=== PATIENT | female | born 1985 | race Caucasian/White ===

== ENCOUNTER 2016-09-11 01:08 | Emergency (ER) | payer MEDICAID ==
--- NOTE | 2016-09-11 01:29 | Emergency Department Record ---
History of Present Illness - General Chief Complaint: Abdominal Pain Stated Complaint: ABDOMINAL PAIN Time Seen by Provider: 09/11/16 01:25 Source: Patient Mode of Arrival: Ambulatory - History of Present Illness Initial Comments: The patient states that she began having low grade upper abdominal pain on her right side last week. She saw her PA who ordered an ultrasound which was done on 09-07-16. Tonight about an hour prior to arrival she developed sudden sever RUQ abdominal pain in the same location only much more severe, about 7-8 out of 10 severity. She has never had blood work or an abdominal CT. She is scheduled to follow up this week for the remainder of the workup. MD Complaint: Abdominal pain Onset/Timin -: Hour(s) Location: RUQ Radiation: Epigastric Quality: Other Consistency: Constant Improves With: Nothing Worsens With: Eating Associated Symptoms: Nausea - Related Data Previous Rx's Medication Instructions Recorded Phenobarb/Hyoscy/Atropine/Scop 32.4 mg PO QID #200 elixir 09/11/16 [ Elixir] Allergies Allergy/AdvReac Type Severity Reaction Status Date / Time cyclobenzaprine AdvReac Intermediate FATIGUE Verified 09/11/16 01:18 Travel Screening - Travel/Exposure Within Last 30 Days Have you traveled within the last 30 days?: No - Travel Symptoms Symptom Screening: None Review of Systems Reviewed: No additional complaints except as noted below Constitutional: Reports: As per HPI. Denies: Chills, Fever, Malaise, Night sweats, Weakness, Weight change Eyes: Reports: As per HPI. Denies: Eye discharge, Eye pain, Photophobia, Vision change ENT: Reports: As per HPI. Denies: Congestion, Dental pain, Ear pain, Epistaxis , Hearing loss, Throat pain Respiratory: Reports: As per HPI. Denies: Cough, Dyspnea, Hemoptysis, Stridor, Wheezes Cardiovascular: Reports: As per HPI. Denies: Arrhythmia, Chest pain, Dyspnea on exertion, Edema, Murmurs, Orthopnea, Palpitations, Paroxysmal nocturnal dyspnea, Rheumatic Fever, Syncope Endocrine: Reports: As per HPI. Denies: Fatigue, Heat or cold intolerance, Polydipsia, Polyuria Gastrointestinal: Reports: As per HPI. Denies: Abdominal pain, Constipation, Diarrhea, Hematemesis, Hematochezia, Melena, Nausea, Vomiting Genitourinary: Reports: As per HPI. Denies: Abnormal menses, Discharge, Dyspareunia, Dysuria, Frequency, Hematuria, Incontinence, Retention, Urgency Musculoskeletal: Reports: As per HPI. Denies: Arthralgia, Back pain, Gout, Joint swelling, Myalgia, Neck pain Skin: Reports: As per HPI. Denies: Bruising, Change in color, Change in hair/ nails, Lesions, Pruritus, Rash Neurological: Reports: As per HPI. Denies: Abnormal gait, Confusion, Headache, Numbness, Paresthesias, Seizure, Tingling, Tremors, Vertigo, Weakness Psychiatric: Reports: As per HPI. Denies: Anxiety, Auditory hallucinations, Depression, Homicidal thoughts, Suicidal thoughts, Visual hallucinations Hematological/Lymphatic: Reports: As per HPI. Denies: Anemia, Blood Clots, Easy bleeding, Easy bruising, Swollen glands Past Medical History - SOCIAL HISTORY Smoking Status: Current every day smoker - RESPIRATORY Hx Respiratory Disorders: No - CARDIOVASCULAR Hx Cardio Disorders: Yes Comment:: high cholesterol - NEURO Hx Neuro Disorders: No - GI Hx GI Disorders: No - Hx Genitourinary Disorders: No Comment:: difficult painful periods with heavy bleeding. - ENDOCRINE Hx Endocrine Disorders: No - MUSCULOSKELETAL Hx Musculoskeletal Disorders: Yes Comment:: knee pain - PSYCH Hx Psych Problems: Yes Hx Anxiety: Yes Hx Depression: Yes - HEMATOLOGY/ONCOLOGY Hx Hematology/Oncology Disorders: No Family Medical History Any Significant Family History?: Yes Hx Cancer: Grandparents Physical Exam - General General Appearance: Alert, Oriented x3, Cooperative, Moderate distress - Head Head exam: Normal inspection - Eye Eye exam: Normal appearance, PERRL Pupils: Normal accommodation - ENT ENT exam: Normal exam, Mucous membranes moist, Normal external ear exam, Normal orophraynx, TM's normal bilaterally Ear exam: Normal external inspection. negative: External canal tenderness Nasal Exam: Normal inspection. negative: Discharge, Sinus tenderness Mouth exam: Normal external inspection, Tongue normal Teeth exam: Normal inspection. negative: Dental caries Throat exam: Normal inspection. negative: Tonsillar erythema, Tonsillar exudate - Neck Neck exam: Normal inspection, Full ROM. negative: Tenderness - Respiratory Respiratory exam: Normal lung sounds bilaterally. negative: Respiratory distress - Cardiovascular Cardiovascular Exam: Regular rate, Normal rhythm, Normal heart sounds - GI/Abdominal GI/Abdominal exam: Soft, Normal bowel sounds, Tenderness (RUQ abdomen tender on palpation). negative: Distended, Rebound, Rigid - Rectal Rectal exam: Deferred - exam: Deferred - Extremities Extremities exam: Normal inspection, Full ROM, Normal capillary refill. negative: Tenderness - Back Back exam: Reports: Normal inspection, Full ROM. Denies: Muscle spasm, Rash noted, Tenderness - Neurological Neurological exam: Alert, Normal gait, Oriented X3, Reflexes normal - Psychiatric Psychiatric exam: Normal affect, Normal mood - Skin Skin exam: Dry, Intact, Normal color, Warm Course Vital Signs 09/11/16 01:18 Temperature 98.8 F Pulse Rate [ 100 H Pulse Ox Probe] Respiratory 20 Rate Blood Pressure 125/83 [Left Arm] Pulse Ox 98 - Reevaluation(s) Reevaluation #1: The patient is up to the bathroom to get us a urine and has not yet improved with her pain level. 09/11/16 02:20 Reevaluation #2: Patient is not improved after dilaudid, CT ordered and repeat dilaudid ordered. 09/11/16 02:48 Reevaluation #3: Patient is more comfortable after second dose of dilaudid. Will go for CT at 4: 30. 09/11/16 03:31 Reevaluation #4: Reviewed patient's [place] Abdomen report from 09-07-16 which reads: 1. No gallstones or biliary dilatation see. The table worker does indicated a positive sonographic hardy's sign however. 2.The remainder of the abdomen ultrasound appears negative. No hydronephrosis evident. 09/11/16 03:35 Reevaluation #5: Patient understands she is to have a fat free diet and that she is constipated mildly as well. She agrees to plan to return if her pain is not controlled with clear liquids, donnatol, and two norcos for home. She will talk with Grazyna Tuesday to be rechecked. She is much more comfortable. 09/11/16 05:17 09/11/16 05:19 Medical Decision Making - Management Options MDM Management: Additional Work-up Planned (e.g. ADM/Transfer/OP Study) (Out patient hida scan through your PCP.) - Data Complexity MDM Data: Labs Ordered and/or Reviewed, X-Ray Ordered and/or Reviewed (Abd/ Pelvis Contrast CT: Normal CT without acute process seen. Mild constipation. Per [facility].) - Lab Data Result diagrams: 09/11/16 01:35 09/11/16 01:35 Disposition Disposition: Discharge Clinical Impression: RUQ abdominal pain, Biliary colic symptom Disposition: Home, Self-Care Condition: (1) Good Instructions: Abdominal Pain (ED), Biliary Colic (ED) Additional Instructions: Clear liquids. Donnatol as directed as needed for pain. Call PCP Grazyna Robles Tuesday for recheck and further workup to schedule HIDA scan through PCP office. Take norco as directed IF NEEDED for pain. High fiber fat free diet and increase fluids for constipation. Prescriptions: Phenobarb/Hyoscy/Atropine/Scop [ Elixir] 32.4 mg PO QID #200 elixir Forms: Patient Portal Access
[2016-09-11] MEDS ORDERED: 0.9 % SODIUM CHLORIDE 1000ML 1,000 ML IV ONE (01:38)
[2016-09-11] MEDS ORDERED: ONDANSETRON HCL IV 4 MG/2 ML VIAL IVP ONE (01:38)
[2016-09-11] MEDS ORDERED: HYDROMORPHONE HCL 1 MG/ML CPJ IVP ONE ×2 (01:42→02:46)
[2016-09-11] MEDS ORDERED: 0.9 % SODIUM CHLORIDE 1,000 ML BAG IV ONE (01:42)
[2016-09-11 01:51] LABS: BASO % 0.2 % (0-6); EOS % 2.2 % (0-6); GRAN % 55.2 % (47-80); HEMATOCRIT 40.7 % (35.0-47.0); HEMOGLOBIN 13.7 gm/dl (11.6-16.0); LYMPH % 36.5 % (16-45); MEAN CELL VOLUME 88.5 fl (81-97); MEAN CORPUSCULAR HEMOGLOBIN 29.8 pg (27-33); MEAN CORPUSCULAR HGB CONC 33.7 g/dl (32-36); MONO % 5.9 % (0-9); PLATELET COUNT 190 K/uL (130-400); RED CELL DISTRIBUTION WIDTH 13.2 % (11.5-14.5); WHITE BLOOD COUNT W/O DIFF 9.3 K/uL (4.2-12.2)
[2016-09-11 02:02] LABS: ALKALINE PHOSPHATASE 72 U/L (38-126); ALT/SGPT 51 U/L (9-52); AST/SGOT 35 U/L (14-36); BILIRUBIN,TOTAL 0.15 mg/dL (0.2-1.3); BLOOD UREA NITROGEN 12 mg/dL (7-17); CREATININE 0.7 mg/dL (0.52-1.04); EST GLOMERULAR FILTRATION RATE > 60 ml/min; GLUCOSE,RANDOM 97 mg/dL (70-110); LIPASE 60 U/L (23-300); TOTAL PROTEIN 6.8 gm/dL (6.3-8.2)
[2016-09-11 02:39] LABS: URINE APPEARANCE CLEAR; URINE BILIRUBIN NEGATIVE (NEGATIVE); URINE BLOOD MODERATE (NEGATIVE); URINE COLOR YELLOW; URINE GLUCOSE (UA) NEGATIVE (NEGATIVE); URINE KETONE NEGATIVE (NEGATIVE); URINE LEUKOCYTE ESTERASE TRACE (NEGATIVE); URINE NITRITE NEGATIVE (NEGATIVE); URINE PROTEIN NEGATIVE (NEGATIVE); URINE UROBILINOGEN 0.2 E.U./dL (0.20 - 1.00)
[2016-09-11 02:43] LABS: HCG,QUALITATIVE URINE NEGATIVE (NEGATIVE)
[2016-09-11] MEDS ORDERED: PROMETHAZINE HCL 25 MG/ML VIAL IVP ONE (02:47)
[2016-09-11 02:54] LABS: URINE BACTERIA 2+; URINE RBC 36 - 50 (NONE SEEN); URINE WBC 21 - 35 (0-2/hpf)
[2016-09-11] MEDS ORDERED: HYDROCODONE/APAP 5/325MG TABLET PO ONE (05:13)
== END 2016-09-11 05:29 | disposition home or self-care (01) ==
LOC: ER 01:08
DX: K80.50 Calculus of bile duct without cholangitis or cholecystitis without obstruction (principal); R10.11 Right upper quadrant pain; R11.0 Nausea; R82.99 Other abnormal findings in urine
CPT/HCPCS: 99284 ×2; 96376; 96374; 96375; 83690; 85025; 80076; 80048; 81001; 81025; 74177; Q9967; J2405; J1170; J2550; J7030

== ENCOUNTER 2016-11-01 10:08 | Day surgery (SDC) | payer MEDICAID ==
[~2016-11-01 10:08] MED LIST: ACETAMINOPHEN 1000MG/100 ML PREMIX IV ONE; FAMOTIDINE 20MG TABLET PO ONE; MECLIZINE 25 MG TABLET PO ONE; METOCLOPRAMIDE 10 MG TABLET PO ONE
[2016-11-01 10:24] LABS: HEMATOCRIT 40.2 % (35.0-47.0); HEMOGLOBIN 13.1 gm/dl (11.6-16.0)
[2016-11-01] MEDS ORDERED: NEOSTIGMINE 1 MG/1 ML,10ML VIAL IV ONE (14:00)
[2016-11-01] MEDS ORDERED: KETOROLAC 30 MG/ML VIAL IVP ONE (14:00)
[2016-11-01] MEDS ORDERED: LIDOCAINE 2% MDV (20MG/ML) 20ML VIAL IV ONE (14:00)
[2016-11-01] MEDS ORDERED: PROPOFOL 10 MG/ML VIAL IV ONE (14:00)
[2016-11-01] MEDS ORDERED: SUCCINYLCHOLINE 20 MG/ML 10ML IVP ONE (14:00)
[2016-11-01] MEDS ORDERED: FENTANYL PF 100MCG/2ML VIAL IV ONE (14:00)
[2016-11-01] MEDS ORDERED: GLYCOPYRROLATE 0.2 MG/ML ML IV ONE (14:00)
[2016-11-01] MEDS ORDERED: ROCURONIUM BROMIDE 50MG/5ML VIAL IV ONE (14:00)
[2016-11-01] MEDS ORDERED: SEVOFLURANE 250 ML INH ONE (14:00)
[2016-11-01] MEDS ORDERED: HYDROMORPHONE HCL 2 MG/ML VIAL IV ONE (15:54)
[2016-11-01] MEDS ORDERED: HYDROCODONE/APAP 5/325MG TABLET PO ONE (15:54)
--- NOTE | 2016-11-03 16:06 | Operative Note ---
DATE OF SURGERY: 11/01/2016 REFERRING: JAN Barlow PREOPERATIVE DIAGNOSIS: Symptomatic biliary dyskinesia. POSTOPERATIVE DIAGNOSIS: Symptomatic biliary dyskinesia. OPERATION: Laparoscopic cholecystectomy. PROCEDURE: Patient is a 31-year-old female who has been having ongoing right subcostal postprandial pain. Pelvic workup did reveal no evidence of cholelithiasis or acute cholecystitis. Followup HIDA scan showed normal uptake and excretion; however, she had an impaired ejection fraction with extreme pain with Kinevac injection. We discussed cholecystectomy versus medical management. She desired surgical intervention. Risks include, but are not limited to, bleeding, infection, ductal injury, possible conversion to open, postoperative bile leak, and she understood this fully. The consent was signed , questions answered. She is taken to the operating room and placed in supine position where general anesthesia was administered per Department of Anesthesia. Patient then was prepped and draped in the usual sterile fashion. Infraumbilical region was anesthetized with a total of 3 mL of 0.25% Sensorcaine with epinephrine. A 3 cm infraumbilical incision was made. This was carried down through the anterior rectus fascia. This was incised. Skyler clamps placed on the fascial edges and brought up into the wound. Stay sutures of O-Vicryl placed. The posterior rectus sheath identified and excised, the peritoneal cavity entered bluntly. At this time, a 10 mm blunt Glenna port was placed and adequate pneumoperitoneum established. Under direct visualization, additional 5 mm epigastric and two 5 mm right subcostal ports are placed. Gallbladder identified in the subhepatic space. There were dense omental adhesions attached to the anterior aspect. These were taken down bluntly as well as with the López harmonic. At this time, the hepatic cyst triangle was thoroughly dissected out. The distal half of the gallbladder was released from the liver plate, extending the retrocystic space. The cystic duct and cystic artery were clearly identified. There was no aberrant anatomy. No posterior ductal structures. Each one at this point was doubly clipped in a standard fashion. Gallbladder was then taken out from the bed with the López harmonic. This is extracted infraumbilically. The right upper quadrant was rechecked and noted to be hemostatic. No bleeding. No bile leak. No bowel injury noted. Patient was leveled out. Pneumoperitoneum was released. All ports removed. The fascial was closed with O-Vicryl in a [id number] fashion. Skin of all 4 ports closed with 4-0 Vicryl. She was taken to recovery room in satisfactory condition. FINDINGS AT TIME OF SURGERY: Chronic cholecystitis. CC: JAN Barlow
== END 2016-11-01 13:00 | disposition home or self-care (01) ==
LOC: SUR 10:08
PROVIDERS: ATTEND Surgery
DX: K81.1 Chronic cholecystitis (principal)
CPT/HCPCS: 85018; 85014; 47562; 00790; J1885; J3010; J1170; J0330; J2710

== ENCOUNTER 2016-12-13 07:24 | Emergency (ER) | payer MEDICAID ==
--- NOTE | 2016-12-13 07:38 | Emergency Department Record ---
History of Present Illness - General Chief complaint: Extremity Problem Stated complaint: RIGHT FOOT INJURY Time Seen by Provider: 12/13/16 07:31 Source: Patient Mode of Arrival: Ambulatory Limitations: No limitations - History of Present Illness Initial comments: 31 yo female presents with right foot pain. She injured in sliding in the yard. She initially had mid foot pain and bruising. The bruising is improved but the tenderness has remained. She has pain with weight bearing. Intact skin. MD Complaint: Extremity pain, Joint pain, Joint swelling -: Days(s) Location: Right History of Same: No -: Yes Arthralgia Radiation: Proximal, Distal Quality: Aching Consistency: Constant Improves with: Elevation, Immobilization Worsens with: Exertion, Palpation, Weight bearing Associated Symptoms: Denies other symptoms - Related Data Previous Rx's Medication Instructions Recorded Hydrocodone/Acetaminophen [[place] 1 each PO Q8H #10 tablet 12/13/16 5-325 Tablet] Allergies Allergy/AdvReac Type Severity Reaction Status Date / Time cyclobenzaprine AdvReac Intermediate FATIGUE Verified 12/13/16 07:35 Review of Systems Constitutional: Denies: Chills, Fever, Weakness Eyes: Denies: Eye discharge ENT: Denies: Congestion, Throat pain Respiratory: Denies: Cough Cardiovascular: Denies: Chest pain, Syncope Endocrine: Denies: Fatigue Gastrointestinal: Denies: Abdominal pain, Diarrhea, Nausea, Vomiting Genitourinary: Denies: Dysuria, Urgency Musculoskeletal: Reports: As per HPI, Arthralgia, Joint swelling Skin: Reports: As per HPI, Bruising Neurological: Denies: Headache Psychiatric: Denies: Anxiety Hematological/Lymphatic: Denies: Easy bleeding, Easy bruising, Swollen glands Past Medical History - SOCIAL HISTORY Smoking Status: Current every day smoker - RESPIRATORY Hx Respiratory Disorders: Yes Hx Pneumonia: Yes (2009) - CARDIOVASCULAR Hx Cardio Disorders: Yes Comment:: high cholesterol - NEURO Hx Neuro Disorders: Yes Hx of Migraines: Yes (OTC meds) - GI Hx GI Disorders: Yes Hx Abdominal Pain: Yes Hx Reflux: Yes Hx Nausea/Vomiting: Yes Hx Wt Loss/Wt Gain: No - Hx Genitourinary Disorders: No Hx Kidney Stones: Yes (to urgent care with severe back pain; abd pain; positive urine ( aug 03)) Hx UTI: Yes Comment:: difficult painful periods with heavy bleeding. - ENDOCRINE Hx Endocrine Disorders: No - MUSCULOSKELETAL Hx Musculoskeletal Disorders: Yes Comment:: knee pain - PSYCH Hx Psych Problems: Yes Hx Anxiety: Yes Hx Depression: Yes - HEMATOLOGY/ONCOLOGY Hx Hematology/Oncology Disorders: No Family Medical History Hx Cancer: Grandparents *Cancer Comment: aunts/uncle--paternal Hx Diabetes: Grandparents Physical Exam - General General Appearance: Alert, Oriented x3, Cooperative, No acute distress Limitations: No limitations - Head Head exam: Normal inspection - Eye Eye exam: Normal appearance. negative: Conjunctival injection - ENT ENT exam: Normal exam Ear exam: Normal external inspection Nasal Exam: Normal inspection - Neck Neck exam: Normal inspection - Cardiovascular Cardiovascular Exam: Regular rate, Normal rhythm, Normal heart sounds Peripheral Pulses: 2+: Dorsalis Pedis (R) - Rectal Rectal exam: Deferred - exam: Deferred - Extremities Extremities exam: Normal inspection, Joint swelling, Normal capillary refill, Tenderness Image of Feet: 1 - tender in the mid foot, faint residual bruising, no significant swelling, sensation intact, brisk cap refill. - Back Back exam: Reports: Full ROM - Neurological Neurological exam: Alert, Normal gait, Oriented X3. negative: Motor sensory deficit - Psychiatric Psychiatric exam: Normal affect, Normal mood - Skin Skin exam: Dry, Intact, Normal color, Warm Course - Reevaluation(s) Reevaluation #1: The XR was read as mild STS no Fx 12/13/16 08:12 Disposition Disposition: Discharge Clinical Impression: Foot sprain Qualifiers: Encounter type: initial encounter Laterality: right Qualified Code(s): S93.601A - Unspecified sprain of right foot, initial encounter Disposition: Home, Self-Care Condition: (1) Good Instructions: Foot Sprain (ED) Additional Instructions: Ice and elevate to minimize swelling Avoid weight bearing until pain free Follow up in the next one week with your doctor for a recheck if any pain continues Use the boot and crutches until pain free Prescriptions: Hydrocodone/Acetaminophen [[place] 5-325 Tablet] 1 each PO Q8H #10 tablet Forms: Patient Portal Access Time of Disposition: 08:15
--- NOTE | 2016-12-17 07:52 | RADIOLOGY REPORT ---
EXAM: RIGHT FOOT HISTORY: INJURY. TECHNIQUE: Three views of the right foot were obtained. Comparison: None. Encounter: Initial. FINDINGS: Negative for acute fracture or dislocation. Mild dorsal soft tissue swelling. The joint spaces are preserved. IMPRESSION: MILD DORSAL SOFT TISSUE SWELLING. NO FRACTURE. JOB NUMBER: [id number] MTDD
== END 2016-12-13 08:41 | disposition home or self-care (01) ==
LOC: ER 07:24
DX: S93.601A Unspecified sprain of right foot, initial encounter (principal); W10.9XXA Fall (on) (from) unspecified stairs and steps, initial encounter; Y92.096 Garden or yard of other non-institutional residence as the place of occurrence of the external cause
CPT/HCPCS: 99283

== ENCOUNTER 2017-05-03 07:05 | Emergency (ER) | payer MEDICAID ==
--- NOTE | 2017-05-03 07:30 | Emergency Department Record ---
History of Present Illness - General Chief complaint: Eye Problem Stated complaint: EYE SWOLLEN Time Seen by Provider: 05/03/17 07:16 Source: Patient Mode of Arrival: Ambulatory Limitations: No limitations - History of Present Illness Initial comments: pt has had redness and drainage from eye. she started bactrim drops that she had in hand and eye became worse with increased redness and irritation. chief complaint: Eye pain, Eye redness Onset/Timin -: Days(s) Onset Description: Sudden Location: Right eye Place: Home If Injury: None Eye Symptoms: Discharge, Foreign body sensation, Pain Severity scale (1-10): 2 If Pain, Quality: Other Consistency: Constant Associated Symptoms: None Treatments Prior to Arrival: Other - Related Data Hx Tetanus Toxoid Vaccination: Yes Previous Rx's Medication Instructions Recorded Gentamicin Sulfate 2 drop EACH EYE QID #1 ml 05/03/17 Allergies Allergy/AdvReac Type Severity Reaction Status Date / Time cyclobenzaprine AdvReac Intermediate FATIGUE Unverified 03/25/17 08:49 Travel Screening - Travel/Exposure Within Last 30 Days Have you traveled within the last 30 days?: No Review of Systems Reviewed: No additional complaints except as noted below Constitutional: Reports: As per HPI. Denies: Chills, Fever, Malaise, Night sweats, Weakness, Weight change Eyes: Reports: As per HPI. Denies: Eye discharge, Eye pain, Photophobia, Vision change ENT: Reports: As per HPI. Denies: Congestion, Dental pain, Ear pain, Epistaxis , Hearing loss, Throat pain Respiratory: Reports: As per HPI. Denies: Cough, Dyspnea, Hemoptysis, Stridor, Wheezes Cardiovascular: Reports: As per HPI. Denies: Arrhythmia, Chest pain, Dyspnea on exertion, Edema, Murmurs, Orthopnea, Palpitations, Paroxysmal nocturnal dyspnea, Rheumatic Fever, Syncope Endocrine: Reports: As per HPI. Denies: Fatigue, Heat or cold intolerance, Polydipsia, Polyuria Gastrointestinal: Reports: As per HPI. Denies: Abdominal pain, Constipation, Diarrhea, Hematemesis, Hematochezia, Melena, Nausea, Vomiting Genitourinary: Reports: As per HPI. Denies: Abnormal menses, Discharge, Dyspareunia, Dysuria, Frequency, Hematuria, Incontinence, Retention, Urgency Musculoskeletal: Reports: As per HPI. Denies: Arthralgia, Back pain, Gout, Joint swelling, Myalgia, Neck pain Skin: Reports: As per HPI. Denies: Bruising, Change in color, Change in hair/ nails, Lesions, Pruritus, Rash Neurological: Reports: As per HPI. Denies: Abnormal gait, Confusion, Headache, Numbness, Paresthesias, Seizure, Tingling, Tremors, Vertigo, Weakness Psychiatric: Reports: As per HPI. Denies: Anxiety, Auditory hallucinations, Depression, Homicidal thoughts, Suicidal thoughts, Visual hallucinations Hematological/Lymphatic: Reports: As per HPI. Denies: Anemia, Blood Clots, Easy bleeding, Easy bruising, Swollen glands Past Medical History - SOCIAL HISTORY Smoking Status: Current every day smoker Alcohol Use: None Drug Use: None - RESPIRATORY Hx Respiratory Disorders: Yes Hx Pneumonia: Yes (2009) - CARDIOVASCULAR Hx Cardio Disorders: Yes Comment:: high cholesterol - NEURO Hx Neuro Disorders: Yes Hx of Migraines: Yes (OTC meds) - GI Hx GI Disorders: Yes Hx Abdominal Pain: Yes Hx Reflux: Yes Hx Nausea/Vomiting: Yes Hx Wt Loss/Wt Gain: No - Hx Genitourinary Disorders: No Hx Kidney Stones: Yes (to urgent care with severe back pain; abd pain; positive urine ( aug 03)) Hx UTI: Yes Comment:: difficult painful periods with heavy bleeding. - ENDOCRINE Hx Endocrine Disorders: No - MUSCULOSKELETAL Hx Musculoskeletal Disorders: Yes Comment:: knee pain - PSYCH Hx Psych Problems: Yes Hx Anxiety: Yes Hx Depression: Yes - HEMATOLOGY/ONCOLOGY Hx Hematology/Oncology Disorders: No Family Medical History Any Significant Family History?: Yes Hx Cancer: Grandparents *Cancer Comment: aunts/uncle--paternal Hx Diabetes: Grandparents Physical Exam - General General Appearance: Alert, Oriented x3, Cooperative, Mild distress - Head Head exam: Normal inspection - Eye Eye exam: Normal appearance, PERRL, Conjunctival injection, EOMI, Periorbital swelling Pupils: Normal accommodation - ENT ENT exam: Normal exam, Mucous membranes moist, Normal external ear exam, Normal orophraynx Ear exam: Normal external inspection. negative: External canal tenderness Nasal Exam: Normal inspection. negative: Discharge, Sinus tenderness Mouth exam: Normal external inspection, Tongue normal Teeth exam: Normal inspection. negative: Dental caries Throat exam: Normal inspection. negative: Tonsillar erythema, Tonsillar exudate - Neck Neck exam: Normal inspection, Full ROM. negative: Tenderness - Respiratory Respiratory exam: Normal lung sounds bilaterally. negative: Respiratory distress - Cardiovascular Cardiovascular Exam: Regular rate, Normal rhythm, Normal heart sounds - GI/Abdominal GI/Abdominal exam: Soft, Normal bowel sounds. negative: Tenderness - Rectal Rectal exam: Deferred - exam: Deferred - Extremities Extremities exam: Normal inspection, Full ROM, Normal capillary refill. negative: Tenderness - Back Back exam: Reports: Normal inspection, Full ROM. Denies: Muscle spasm, Rash noted, Tenderness - Neurological Neurological exam: Alert, CN II-XII intact, Normal gait, Oriented X3 - Psychiatric Psychiatric exam: Normal affect, Normal mood - Skin Skin exam: Dry, Intact, Normal color, Warm Course Vital Signs 05/03/17 07:07 Temperature 98.0 F Pulse Rate 94 H Respiratory 20 Rate Blood Pressure 132/85 Pulse Ox 97 Disposition Disposition: Discharge Clinical Impression: Conjunctivitis Qualifiers: Conjunctivitis type: acute Acute conjunctivitis type: unspecified Laterality: right Qualified Code(s): H10.31 - Unspecified acute conjunctivitis, right eye Disposition: Home, Self-Care Condition: (1) Good Instructions: Conjunctivitis (ED) Additional Instructions: follow up with family doctor. return sooner if worse. stop current drops Prescriptions: Gentamicin Sulfate 2 drop EACH EYE QID #1 ml Forms: Patient Portal Access Quality - Quality Measures Quality Measures: N/A - Blood Pressure Screening Does Patient Have Any of the Following: No Blood Pressure Classification: Pre-Hypertensive BP Reading Systolic Measurement: 132 Diastolic Measurement: 85 Screening for High Blood Pressure: < Pre-Hypertensive BP, F/U Documented > [ [id number]] Pre-Hypertensive Follow-up Interventions: Follow-up with rescreen every year.
== END 2017-05-03 07:35 | disposition home or self-care (01) ==
LOC: ER 07:05
DX: H10.31 Unspecified acute conjunctivitis, right eye (principal)
CPT/HCPCS: 99282

== ENCOUNTER 2017-07-24 15:42 | Emergency (ER) | payer MEDICAID ==
[2017-07-24] MEDS ORDERED: ACETAMINOPHEN 500 MG TABLET PO ONE (16:57)
[2017-07-24] MEDS ORDERED: AMOXICILLIN 500MG CAPSULE PO ONE (16:57)
--- NOTE | 2017-07-24 17:02 | Emergency Department Record ---
History of Present Illness - General Chief complaint: ENT Stated complaint: RT EAR PAIN/RT JAW SWELLING Time Seen by Provider: 07/24/17 16:53 Source: Patient Mode of Arrival: Ambulatory Limitations: No limitations - History of Present Illness Initial comments: 32 yo female presents with right ear pain and right jaw pain for several days. No fevers. She has a fullness feeling in the ear with pressure. No drainage. The anterior lower right jaw is tender near her teeth. No abscess. No pus or drainage. She has chronic poor dentition. MD complaint: Ear pain, Tooth pain, Other Onset/Timin -: Days(s) Location: R ear Severity: Moderate Severity scale (1-10): 3 Quality: Aching Consistency: Constant Improves with: None Worsens with: None Context- Dental: Poor dental care Associated Symptoms: Toothache - Related Data Previous Rx's Medication Instructions Recorded Amoxicillin 500Mg Capsule [Amoxil] 500 mg PO TID #30 tab 07/24/17 Allergies Allergy/AdvReac Type Severity Reaction Status Date / Time cyclobenzaprine AdvReac Intermediate FATIGUE Verified 07/24/17 16:35 Travel Screening - Travel/Exposure Within Last 30 Days Have you traveled within the last 30 days?: No - Travel/Exposure Within Last Year Have you traveled outside the [place] in the last year?: No - Additonal Travel Details Have you been exposed to anyone with a communicable illness?: No - Travel Symptoms Symptom Screening: None Review of Systems Constitutional: Denies: Chills, Fever, Malaise, Weakness Eyes: Denies: Eye discharge, Eye pain, Photophobia ENT: Reports: Dental pain, Ear pain (Right). Denies: Congestion, Throat pain Respiratory: Denies: Cough, Dyspnea Cardiovascular: Denies: Chest pain, Edema Endocrine: Denies: Fatigue Gastrointestinal: Denies: Abdominal pain, Diarrhea, Nausea, Vomiting Genitourinary: Denies: Dysuria, Urgency Musculoskeletal: Denies: Arthralgia, Back pain, Joint swelling, Myalgia Skin: Denies: Bruising, Change in color, Rash Neurological: Denies: Abnormal gait, Headache, Numbness, Tingling, Vertigo, Weakness Psychiatric: Denies: Anxiety Hematological/Lymphatic: Denies: Blood Clots, Easy bleeding, Easy bruising, Swollen glands Past Medical History - SOCIAL HISTORY Smoking Status: Current every day smoker Alcohol Use: Rare Drug Use: None - RESPIRATORY Hx Respiratory Disorders: Yes Hx Pneumonia: Yes (2009) - CARDIOVASCULAR Hx Cardio Disorders: Yes Comment:: high cholesterol - NEURO Hx Neuro Disorders: Yes Hx of Migraines: Yes (OTC meds) - GI Hx GI Disorders: Yes Hx Abdominal Pain: Yes Hx Reflux: Yes Hx Nausea/Vomiting: Yes Hx Wt Loss/Wt Gain: No - Hx Genitourinary Disorders: No Hx Kidney Stones: Yes (to urgent care with severe back pain; abd pain; positive urine ( aug 03)) Hx UTI: Yes Comment:: difficult painful periods with heavy bleeding. - ENDOCRINE Hx Endocrine Disorders: No - MUSCULOSKELETAL Hx Musculoskeletal Disorders: Yes Comment:: knee pain - PSYCH Hx Psych Problems: Yes Hx Anxiety: Yes Hx Depression: Yes - HEMATOLOGY/ONCOLOGY Hx Hematology/Oncology Disorders: No Family Medical History Any Significant Family History?: Yes Hx Cancer: Grandparents *Cancer Comment: aunts/uncle--paternal Hx Diabetes: Grandparents Physical Exam - General General Appearance: Alert, Oriented x3, Cooperative, No acute distress Limitations: No limitations - Head Head exam: Normal inspection - Eye Eye exam: Normal appearance, PERRL Pupils: negative: Irregular, Unequal - ENT ENT exam: Mucous membranes moist, TM's normal bilaterally (Right TM with erythema and fluid, no perf, left is normal). negative: Normal exam Ear exam: Normal external inspection. negative: External canal tenderness Nasal Exam: Normal inspection. negative: Discharge, Sinus tenderness Mouth exam: Normal external inspection, Tongue normal Teeth exam: Dental caries, Dental tenderness # (26) Throat exam: Normal inspection. negative: Tonsillar erythema, Tonsillomegaly, Tonsillar exudate, R peritonsillar mass, L peritonsillar mass - Neck Neck exam: Normal inspection, Full ROM. negative: Lymphadenopathy, Tenderness - Respiratory Respiratory exam: Normal lung sounds bilaterally. negative: Respiratory distress - Cardiovascular Cardiovascular Exam: Regular rate, Normal rhythm, Normal heart sounds - GI/Abdominal GI/Abdominal exam: Soft - Rectal Rectal exam: Deferred - exam: Deferred - Extremities Extremities exam: Normal inspection - Neurological Neurological exam: Alert, CN II-XII intact, Oriented X3 - Psychiatric Psychiatric exam: Normal affect, Normal mood - Skin Skin exam: Dry, Intact, Normal color, Warm Course Vital Signs 07/24/17 16:36 Temperature 98.2 F Pulse Rate 74 Respiratory 18 Rate Blood Pressure 110/84 Pulse Ox 98 Disposition Disposition: Discharge Clinical Impression: Pain, dental Otitis media Qualifiers: Otitis media type: unspecified Chronicity: acute Qualified Code(s): H66.90 - Otitis media, unspecified, unspecified ear Disposition: Home, Self-Care Condition: (1) Good Instructions: Otitis Media (ED), Toothache (ED) Additional Instructions: Call your doctor for close follow up Return to the ER if worse, fever, swelling Prescriptions: Amoxicillin 500Mg Capsule [Amoxil] 500 mg PO TID #30 tab Time of Disposition: 17:01 Quality - Quality Measures Quality Measures: N/A - Blood Pressure Screening Does Patient Have Any of the Following: No Blood Pressure Classification: Pre-Hypertensive BP Reading Systolic Measurement: 110 Diastolic Measurement: 84 Screening for High Blood Pressure: < Pre-Hypertensive BP, F/U Documented > [ [id number]] Pre-Hypertensive Follow-up Interventions: Referral to alternative/primary care provider.
== END 2017-07-24 17:21 | disposition home or self-care (01) ==
LOC: ER 15:42
DX: H66.91 Otitis media, unspecified, right ear (principal); K08.89 Other specified disorders of teeth and supporting structures
CPT/HCPCS: 99282